=== PATIENT | female | born 1950 | race Caucasian/White ===

== ENCOUNTER 2021-02-05 23:00 | Emergency (ER) | payer MEDICAID, MEDICARE, OTHER ==
[~2021-02-05] VITALS: Ht 165.1 cm; Wt 90.1 kg
[2021-02-05] MEDS ORDERED: IBUPROFEN 600 MG (MOTRIN) TAB PO ONE (23:30)
--- NOTE | 2021-02-06 00:12 | ED Cough/URI ---
General Chief Complaint: Cough/Cold/Flu Symptoms Stated Complaint: BODY ACHES,CHILLS,COUGH Nursing Triage Note: Patient states that she just got off a plane from vacation. Patient went to [place]. Patient states that her grandson tested positive for Covid 01/31/21 and she has had exposure to him. Patient denies having cough, shortness of breath or runny nose. Patient states that she has the chills, body aches and her "skin is sore", especially on the back. Source: patient Exam Limitations: no limitations History of Present Illness Date Seen by Provider: Feb 06, 2021 Time Seen by Provider: 23:05 Initial Comments Patient is a 70-year-old female with history of bronchial asthma who presents with Covid-like symptoms. Symptoms began 5 days ago while on vacation and staying with family member with positive Covid status. Patient reports having cough, mild shortness of breath and stuffy nose. She states that she has chills body ache and her skin feels sore especially between her shoulder blades. She denies chest pain palpitations and shortness of breath at rest but denies wheezing. Reports intermittent daily low-grade fevers. Patient is taking ibuprofen with limited relief. No other acute symptoms or complaints. Timing/Duration: just prior to arrival, changing over time, intermittent Severity/Quality: moderate Prior Episodes/Possible Cause: other Modifying Factors: Improves With Other Associated Symptoms: cough, earache, facial pain, fever/chills, sore throat, other Allergies and Home Medications Allergies Coded Allergies: No Known Drug Allergies (Unverified , 02/05/21) Patient Home Medication List Home Medication List Reviewed: Yes Review of Systems Review of Systems Constitutional: see HPI EENTM: see HPI Respiratory: see HPI Cardiovascular: see HPI Gastrointestinal: see HPI Genitourinary: see HPI Musculoskeletal: no symptoms reported Skin: see HPI Psychiatric/Neurological: See HPI Hematologic/Lymphatic: See HPI Immunological/Allergic: see HPI All Other Systems Reviewed Negative Unless Noted: Yes Past Ruhiafr-Hipbsv-Bnzdrd Hx Patient Social History Tobacco Use?: Yes Substance use?: No Alcohol Use?: No Pt feels they are or have been: No Physical Exam Vital Signs - First Documented Capillary Refill : Less Than 3 Seconds Height: '" Weight: lbs. oz. kg; 33.00 BMI Method: General Appearance: other Eyes: Bilateral Eye Normal Inspection, Bilateral Eye PERRL, Bilateral Eye EOMI HEENT: PERRL/EOMI, other Neck: full range of motion Respiratory: chest non-tender, lungs clear, rhonchi Cardiovascular: regular rate, rhythm Gastrointestinal: non tender, soft Neurologic/Psychiatric: concrete batcher II-XII nml as tested, oriented x 3 Skin: warm/dry Focused Exam Sepsis Stage: Ruled Out Progress/Results/Core Measures Suspected Sepsis SIRS Temperature: Pulse: 91 Respiratory Rate: 18 Blood Pressure 172 /84 Mean: 113 Results/Orders Lab Results Laboratory Tests Test 02/05/21 23:31 Range/Units My Orders Orders - JESIKA HADDAD DO Coronavirus Sars-Cov-2 So 2018 (02/05/21 23:23) Ibuprofen Tablet (Motrin Tablet) (02/05/21 23:30) Influenza A And B Antigens (02/05/21 23:43) Medications Given in ED Current Medications Medications Dose Ordered Sig/Jesu Route Start Time Stop Time Status Last Admin Dose Admin Ibuprofen 600 mg ONCE ONCE PO 02/05/21 23:30 02/05/21 23:31 DC 02/05/21 23:34 600 MG Vital Signs/I&O 02/05/21 02/05/21 23:03 23:03 Temp 37.5 Pulse 91 Resp 18 B/P (MAP) 172/84 (113) Pulse Ox 97 O2 Delivery Room Air Room Air Capillary Refill : Less Than 3 Seconds Blood Pressure Mean: 113 Departure Communication (Admissions) Patient with Covid-like symptoms. Influenza swab negative. Covid testing pending. No respiratory compromise. Ibuprofen given for symptom control. Recomme ndations are for self quarantine, supportive care and PCP follow-up. Return precautions reviewed. Patient verbalizes understanding agreement discharge instructions prior to departure. Impression Primary Impression: COVID-19 Disposition: 01 HOME, SELF-CARE Condition: Stable Departure-Patient Inst. Decision time for Depature: 00:16 Patient Instructions: COVID-19 (DC) Add. Discharge Instructions: Your evaluated in the emergency for Covid-like symptoms. An influenza test was negative and Covid test are pending. Please self isolate until 2 days after symptoms resolved. Take ibuprofen for pain and use albuterol inhaler as needed. Take newly prescribed medications as directed and monitor O2 levels with digital oxygen sensor. Return to the ED if oxygen levels fall below 90% or if other concerning symptoms. All discharge instructions reviewed with patient and/or family. Voiced understanding. Scripts Prednisone (Prednisone) 20 Mg Tab 40 MG PO DAILY, #6 TAB 0 Refills Prov: JESIKA HADDAD DO 02/06/21 Azithromycin (Zithromax) 250 Mg Tablet 250 MG PO UD, #6 TAB TAKE 2 TABLETS TODAY, THEN TAKE 1 TABLET DAILY FOR 4 MORE DAYS Prov: JESIKA HADDAD DO 02/06/21 Albuterol Sulfate (Proventil Hfa) 6.7 Gm Hfa.aer.ad 2 PUFF INH Q6H for SHORTNESS OF BREATH, #1 EACH Prov: JESIKA HADDAD DO 02/06/21 JESIKA HADDAD DO Feb 06, 2021 00:12
[2021-02-06] MEDS ORDERED: AZIT250T PO (00:18)
[2021-02-06] MEDS ORDERED: PRD20T PO (00:18)
[2021-02-06] MEDS ORDERED: RT-ALBUINH INH (00:18)
[2021-02-06 00:23] VITALS: BP 162/91
== END 2021-02-06 00:23 | disposition home or self-care (01) ==
LOC: EDUNIT# 23:00 → ER FS 23:03
DX: U07.1 COVID-19 (principal)
CPT/HCPCS: 87635; 87804

== ENCOUNTER 2021-02-13 21:03 | Inpatient (IN) | payer MEDICARE, MEDICAID ==
[~2021-02-13] VITALS: Ht 165 cm; Wt 90.1 kg
[~2021-02-13 21:03] MED LIST: AZIT250T PO; PRD20T PO; RT-ALBUINH INH
[2021-02-13] MEDS ORDERED: NS IV 1000 ML 1,000 ML IV SCH (21:30)
--- NOTE | 2021-02-13 21:48 | Diagnostic Imaging Report ---
EXAMINATION: Chest radiograph, portable AP view. DATE: 02/13/2021 9:43 PM INDICATION: 70-year-old female, COVID positive. Shortness of breath. COMPARISON: None. FINDINGS: There is multifocal patchy bilateral lung consolidation. Heart size and mediastinal contours are unremarkable. There is no identified pneumothorax. There is no large pleural effusion. There is a chronic appearing deformity of the middle third of the right clavicle. IMPRESSION: 1. Multifocal patchy bilateral lung consolidation which would be most consistent with provided history of COVID 19 infection and multifocal pneumonia/pneumonitis. Dictated by: Dictated on workstation # [id number]
[2021-02-13 21:49] LABS: HEMOGLOBIN 13.2 G/DL (11.5-16.0); MEAN CORPUSCULAR HEMOGLOBIN 30 PG (25-34); WHITE BLOOD COUNT 6.6 10^3/uL (4.3-11.0)
[2021-02-13 21:50] LABS: BASOPHILS % (AUTO) 0 % (0-10); EOSINOPHILS # (AUTO) 0.1 10^3/uL (0.0-0.3); EOSINOPHILS % (AUTO) 1 % (0-10); HEMATOCRIT 39 % (35-52); LYMPHOCYTES % (AUTO) 27 % (12-44); MEAN CORPUSCULAR HGB CONC 34 G/DL (32-36); MEAN CORPUSCULAR VOLUME 88 FL (80-99); MEAN PLATELET VOLUME 9.6 FL (7.4-10.4); MONOCYTES # (AUTO) 0.5 X 10^3 (0.0-1.0); MONOCYTES % (AUTO) 7 % (0-12); NEUTROPHILS # (AUTO) 4.2 X 10^3 (1.8-7.8); NEUTROPHILS % (AUTO) 65 % (42-75); PLATELET COUNT 345 10^3/uL (130-400)
[2021-02-13 21:51] LABS: LYMPHOCYTES # (AUTO) 1.8 X 10^3 (1.0-4.0)
--- NOTE | 2021-02-13 21:56 | ED Dyspnea ---
General Chief Complaint: Respiratory Problems Stated Complaint: COVID+,SOA Source of Information: Patient, Old Records History of Present Illness Date Seen by Provider: Feb 13, 2021 Time Seen by Provider: 21:09 Initial Comments 70 yo female presenting with complaint of worsening cough and shortness of breath. She was diagnosed with Covid last week on February 05 after being seen in the emergency department. She was prescribed an inhaler and steroids. She has been taking Mucinex and NyQuil [id number]. She states that she is coughing up thick sputum but it is gagging her when she coughs and episodes of thick. She has decreased appetite and when she does try to eat or drink something makes her nauseated. She has had no vomiting. She denies any diarrhea. She has had some mild burning with urination today. She has had subjective fever and temp of 99.3 earlier this evening. She has had chills with all this. She has general malaise and fatigue with her symptoms. She denies having a primary care physician and does not follow with any providers. In the remote past she had seen Dr. Wright but again has not seen anyone for a long time. She has been checking her oxygen saturation at home and states it had dipped down to 88% so her family had made her come to the emergency department to be evaluated. Timing/Duration: Other (worsening symptoms for over a week) Severity: Severe Modifying Factors: Worse With Activity; Improves With Albuterol Inhaler (helps her cough up mucus) Associated Symptoms: Anxiety, Cough, Fever, Loss of Appetite, Weakness, Wheezing Allergies and Home Medications Allergies Coded Allergies: No Known Drug Allergies (Unverified , 02/05/21) Home Medications Albuterol Sulfate 6.7 Gm Hfa.aer.ad, 2 PUFF INH Q6H Prescribed by: JESIKA HADDAD on 02/06/2117 Azithromycin 250 Mg Tablet, 250 MG PO UD TAKE 2 TABLETS TODAY, THEN TAKE 1 TABLET DAILY FOR 4 MORE DAYS Prescribed by: JESIKA HADDAD on 02/06/2117 Prednisone 20 Mg Tab, 40 MG PO DAILY Prescribed by: JESIKA HADDAD on 02/06/2117 Patient Home Medication List Home Medication List Reviewed: Yes Review of Systems Review of Systems Constitutional: chills, fever, malaise, weakness EENTM: nose congestion Respiratory: cough, dyspnea on exertion; No hemoptysis; phlegm, short of breath; No stridor; wheezing Cardiovascular: No edema Gastrointestinal: loss of appetite, nausea; No vomiting Genitourinary: dysuria (mild today) Musculoskeletal: other (general body aches) Skin: No rash Psychiatric/Neurological: Anxiety, Headache Physical Exam Vital Signs Vital Signs - First Documented 02/13/21 21:30 Temp 36.7 Pulse 93 Resp 24 B/P (MAP) 142/79 (100) Pulse Ox 92 O2 Delivery Room Air Capillary Refill : Height, Weight, BMI Height: '" Weight: lbs. oz. kg; 33.00 BMI Method: General Appearance: Anxious, Mild Distress, Obese HEENT: PERRL/EOMI, Pharynx Normal Neck: Full Range of Motion, Normal Inspection, Non Tender, Supple Respiratory: No Accessory Muscle Use; No No Respiratory Distress; Decreased Breath Sounds, Rhonci; No Stridor; Wheezing Cardiovascular: Regular Rate, Rhythm, No Murmur, Normal Peripheral Pulses Gastrointestinal: Normal Bowel Sounds, No Pulsatile Mass, Non Tender, Soft Rectal: Deferred Extremity: Normal Capillary Refill, Normal Inspection, Normal Range of Motion Neurologic/Psychiatric: Alert, Oriented x3, presentation specialist II-XII Norm as Tested Skin: Normal Color, Warm/Dry Focused Exam Lactate Level 02/13/21 21:40: Lactic Acid Level 1.32 Lactic Acid Level Laboratory Tests Test 02/13/21 21:40 Lactic Acid Level 1.32 MMOL/L (0.50-2.00) Progress/Results/Core Measures Results/Orders Lab Results Laboratory Tests Test 02/13/21 21:40 02/13/21 21:48 Range/Units White Blood Count 6.6 4.3-11.0 10^3/uL Red Blood Count 4.46 4.35-5.85 10^6/uL Hemoglobin 13.2 11.5-16.0 G/DL Hematocrit 39 35-52 % Mean Corpuscular Volume 88 80-99 FL Mean Corpuscular Hemoglobin 30 25-34 PG Mean Corpuscular Hemoglobin Concent 34 32-36 G/DL Red Cell Distribution Width 13.8 10.0-14.5 % Platelet Count 345 130-400 10^3/uL Mean Platelet Volume 9.6 7.4-10.4 FL Immature Granulocyte % (Auto) 0 % Neutrophils (%) (Auto) 65 42-75 % Lymphocytes (%) (Auto) 27 12-44 % Monocytes (%) (Auto) 7 0-12 % Eosinophils (%) (Auto) 1 0-10 % Basophils (%) (Auto) 0 0-10 % Neutrophils # (Auto) 4.2 1.8-7.8 X 10^3 Lymphocytes # (Auto) 1.8 1.0-4.0 X 10^3 Monocytes # (Auto) 0.5 0.0-1.0 X 10^3 Eosinophils # (Auto) 0.1 0.0-0.3 10^3/uL Basophils # (Auto) 0.0 0.0-0.1 10^3/uL Immature Granulocyte # (Auto) 0.0 0.0-0.1 10^3/uL Prothrombin Time 12.6 12.2-14.7 SEC INR Comment 0.9 0.8-1.4 Activated Partial Thromboplast Time 27 24-35 SEC D-Dimer 1.12 H 0.00-0.49 UG/ML Sodium Level 141 135-145 MMOL/L Potassium Level 4.0 3.6-5.0 MMOL/L Chloride Level 103 98-107 MMOL/L Carbon Dioxide Level 23 21-32 MMOL/L Anion Gap 15 H 5-14 MMOL/L Blood Urea Nitrogen 13 7-18 MG/DL Creatinine 0.70 0.60-1.30 MG/DL Estimat Glomerular Filtration Rate 83 BUN/Creatinine Ratio 19 Glucose Level 118 H 70-105 MG/DL Lactic Acid Level 1.32 0.50-2.00 MMOL/L Calcium Level 8.6 8.5-10.1 MG/DL Corrected Calcium 8.7 8.5-10.1 MG/DL Total Bilirubin 0.6 0.1-1.0 MG/DL Aspartate Amino Transf (AST/SGOT) 42 H 5-34 U/L Alanine Aminotransferase (ALT/SGPT) 26 0-55 U/L Alkaline Phosphatase 107 40-136 U/L Troponin I < 0.30 <0.30 NG/ML C-Reactive Protein 11.10 H <0.50 MG/DL Total Protein 7.2 6.4-8.2 GM/DL Albumin 3.9 3.2-4.5 GM/DL Blood Gas Puncture Site RT RADIAL Blood Gas Patient Temperature 36.7 Arterial Blood pH 7.48 H 7.37-7.43 Arterial Blood Partial Pressure CO2 34 L 35-45 MMHG Arterial Blood Partial Pressure O2 60 L 79-93 MMHG Arterial Blood HCO3 25 23-27 MMOL/L Arterial Blood Total CO2 26.3 21.0-31.0 MMOL/L Arterial Blood Oxygen Saturation 92 L 94-100 % Arterial Blood Base Excess 2.1 -2.5-2.5 MMOL/L Kyle Test OK Blood Gas Ventilator Setting NO Blood Gas Inspired Oxygen ROOM AIR My Orders Orders - RUSTAM TOLENTINO MD Monitor-Rhythm Ecg Trace Only (02/13/21 21:17) Ed Iv/Invasive Line Start (02/13/21 21:17) Cbc With Automated Diff (02/13/21 21:17) Comprehensive Metabolic Panel (02/13/21 21:17) Crp Fs (02/13/21 21:17) Troponin I Fs (02/13/21 21:17) Protime With Inr (02/13/21 21:17) Partial Thromboplastin Time (02/13/21 21:17) Ekg Tracing (02/13/21 21:17) Arterial Blood Gas (02/13/21 21:17) Ns Iv 1000 Ml (Sodium Chloride 0.9%) (02/13/21 21:30) Blood Culture (02/13/21 21:17) Chest 1 View Ap/Pa Only (02/13/21 21:17) Lactic Acid Analyzer (02/13/21 21:17) Dexamethasone Injection (Decadron Inje (02/13/21 21:59) Rx-Albuterol Inhaler (Rx-Ventolin Hfa) (02/13/21 21:59) Nursing Communication (Order) (02/13/21 21:59) Fibrin Degradation Products (02/13/21 22:15) Ct Angio Chest W (02/13/21 22:52) Iohexol Injection (Omnipaque 350 Mg/Ml 1 (02/13/21 23:15) Received Contrast (Hold Metformin- Contr (02/13/21 23:15) Ns (Ivpb) (Sodium Chloride 0.9% Ivpb Bag (02/13/21 23:15) Medications Given in ED Current Medications Medications Dose Ordered Sig/Jesu Route Start Time Stop Time Status Last Admin Dose Admin Iohexol 125 ml ONCE ONCE IV 02/13/21 23:15 02/13/21 23:16 DC 02/13/21 23:26 125 ML Sodium Chloride 100 ml ONCE ONCE IV 02/13/21 23:15 02/13/21 23:16 DC 02/13/21 23:26 100 ML Vital Signs/I&O 02/13/21 02/13/21 02/13/21 02/14/21 21:30 22:00 23:00 00:00 Temp 36.7 Pulse 93 91 90 88 Resp 24 B/P (MAP) 142/79 (100) 146/73 (97) 154/86 (108) 169/81 (110) Pulse Ox 92 93 94 92 O2 Delivery Room Air Room Air Room Air Room Air 02/14/21 00:44 Temp 36.7 Pulse 88 Resp 24 B/P (MAP) 169/81 (110) Pulse Ox 92 O2 Delivery Room Air 02/14/21 00:00 Intake Total 1000 ml Balance 1000 ml Progress Progress Note #1: Progress Note Check basic labs as well as chest x-ray and electrocardiogram. Give IV fluids for hydration, dexamethasone for cough and congestion. ABG to evaluate her oxygenation in finer detail. Progress Note #2: Progress Note Labs did not show any acute significant normality on CBC. Her chemistry has an elevated CRP consistent with Covid infection but troponin and lactic acid are normal. Her ABG did show alkalosis at 7.47 with PCO2 of 32, PO2 of 60 on room air. This is equivalent to 92% O2 sat. She was breathing at least 26 times a minute to maintain the saturation. Chest x-ray shows diffuse infiltrates consistent with Covid. Her D-dimer was slightly evaluated at 1.1. She was breathing a little bit easier after breathing treatment with albuterol inhaler and a spacer. Obtain a CT angiogram to evaluate for PE. Progress Note #3: Time: 23:56 Progress Note Discussed with Dr. Dominique for the hospitalist service and she accepted the patient for admission for Covid and her relative hypoxia and tachypnea. The CT angiogram came back shortly after speaking with Dr. Hernandez did not demonstrate any pulmonary embolism. She did have diffuse infiltrates consistent with Covid. Initial ECG Impression Date: Feb 13, 2021 Initial ECG Impression Time: 21:48 Initial ECG Rate: 88 Initial ECG Rhythm: Normal Sinus Initial ECG Comparisson: No Previous ECG Available Comment Normal sinus rhythm without ST elevation and heart rate of 88 bpm. CA interval 143 ms. QT interval 387 ms with a QTc interval 471 ms. There is no prior tracing available for comparison. Diagnostic Imaging Diagonstic Imaging: Xray Plain Films/CT/US/NM/MRI: chest Comments NAME: [facility]ES [facility] REC#: [id number] PT STATUS: REG ER : 1950 PHYSICIAN: RUSTAM TOLENTINO MD ADMIT DATE: 02/13/21/ER FS Draft Date of Exam:02/13/21 CHEST 1 VIEW AP/PA ONLY EXAMINATION: Chest radiograph, portable AP view. DATE: 02/13/2021 9:43 PM INDICATION: 70-year-old female, COVID positive. Shortness of breath. COMPARISON: None. FINDINGS: There is multifocal patchy bilateral lung consolidation. Heart size and mediastinal contours are unremarkable. There is no identified pneumothorax. There is no large pleural effusion. There is a chronic appearing deformity of the middle third of the right clavicle. IMPRESSION: 1. Multifocal patchy bilateral lung consolidation which would be most consistent with provided history of COVID 19 infection and multifocal pneumonia/pneumonitis. Dictated on workstation # [id number] Dict: 02/13/212144 Trans: 02/13/212147 [facility] [id number] Interpreted by: SAMY NICHOLS MD Electronically signed by: Reviewed: Reviewed by [place] Diagonstic Imaging: CT Plain Films/CT/US/NM/MRI: chest Comments CT angio report from [facility] read as no PE. Diffuse infiltrates consistent with covid infection. Reviewed: Reviewed [facility] Study Departure Communication (Admissions) Time/Spoke to Admitting Phy: 23:56 d/w for Hospitalist service and she accepted pt for admit with borderline O2 and increased respiratory rate to maintain sats. Use Covid order set. Impression Primary Impression: Pneumonia due to COVID-19 virus Disposition: 30 STILL A PATIENT Condition: Stable Admissions Decision to Admit Reason: Admit from ER (General) Decision to Admit/Date: Feb 13, 2021 Time/Decision to Admit Time: 23:56 Departure-Patient Inst. Referrals: NO,LOCAL PHYSICIAN (PCP/Family) Primary Care Physician RUSTAM TOLENTINO MD Feb 13, 2021 21:56
[2021-02-13] MEDS ORDERED: RX-ALBUTEROL INHALER (VENTOLIN HFA) 8.5 GM IH STA (21:59)
[2021-02-13 22:00] LABS: ABG BASE EXCESS 2.1 MMOL/L (-2.5-2.5); ABG OXYGEN SATURATION 92 % (94-100); ABG PCO2 34 MMHG (35-45); ABG PH 7.48 (7.37-7.43); ABG PO2 60 MMHG (79-93); ABG TCO2 26.3 MMOL/L (21.0-31.0)
[2021-02-13 22:01] LABS: PATIENT TEMP 36.7; VENTILATOR NO
[2021-02-13 22:02] LABS: ALLENS TEST OK; INSPIRED O2 ROOM AIR
[2021-02-13 22:03] LABS: INR 0.9 (0.8-1.4); PROTHROMBIN TIME PATIENT 12.6 SEC (12.2-14.7)
[2021-02-13 22:15] LABS: BUN/CREATININE RATIO 19; CALCIUM 8.6 MG/DL (8.5-10.1); CARBON DIOXIDE 23 MMOL/L (21-32); CHLORIDE 103 MMOL/L (98-107); GFR ESTIMATED 83; GLUCOSE 118 MG/DL (70-105); SODIUM 141 MMOL/L (135-145)
[2021-02-13 22:16] LABS: ALANINE AMINOTRANSFERASE 26 U/L (0-55); ALBUMIN 3.9 GM/DL (3.2-4.5); ALKALINE PHOSPHATASE 107 U/L (40-136); BILIRUBIN,TOTAL 0.6 MG/DL (0.1-1.0); TOTAL PROTEIN 7.2 GM/DL (6.4-8.2)
[2021-02-13] MEDS ORDERED: NS 100 ML (IVPB) BAG IV ONE (23:15)
[2021-02-13] MEDS ORDERED: HOLD METFORMIN - RECEIVED CONTRAST 20 ML VIAL IV SCH (23:15)
[2021-02-13] MEDS ORDERED: IOHEXOL 350 MG/ML 150 ML (OMNIPAQUE 350) VIAL IV ONE (23:15)
[2021-02-14 01:45] VITALS: BP 175/98
[2021-02-14] MEDS ORDERED: LACTATED RINGERS 1,000 ML IV SCH (01:45)
[2021-02-14 02:13] VITALS: BP 142/79
[2021-02-14] MEDS ORDERED: RT-ALBUTEROL HFA 8.5 GM INHALER IH PRN (02:30)
[2021-02-14 04:11] VITALS: BP 136/83
[2021-02-14 05:45] LABS: BASOPHILS % (AUTO) 0 % (0-10); EOSINOPHILS % (AUTO) 0 % (0-10); HEMATOCRIT 38 % (35-52); HEMOGLOBIN 12.5 g/dL (11.5-16.0); LYMPHOCYTES % (AUTO) 20 % (12-44); MEAN CORPUSCULAR HEMOGLOBIN 29 pg (25-34); MEAN CORPUSCULAR HGB CONC 33 g/dL (32-36); MEAN CORPUSCULAR VOLUME 88 fL (80-99); MEAN PLATELET VOLUME 9.5 fL (9.0-12.2); MONOCYTES # (AUTO) 0.1 10^3/uL (0.0-1.0); MONOCYTES % (AUTO) 2 % (0-12); NEUTROPHILS # (AUTO) 3.8 10^3/uL (1.8-7.8); NEUTROPHILS % (AUTO) 78 % (42-75); PLATELET COUNT 316 10^3/uL (130-400); WHITE BLOOD COUNT 4.9 10^3/uL (4.3-11.0)
[2021-02-14 05:56] LABS: ALBUMIN 3.6 GM/DL (3.2-4.5)
[2021-02-14 05:57] LABS: POTASSIUM 4.1 MMOL/L (3.6-5.0)
[2021-02-14 05:58] LABS: CALCIUM 8.4 MG/DL (8.5-10.1)
[2021-02-14 05:59] LABS: TOTAL PROTEIN 6.6 GM/DL (6.4-8.2)
[2021-02-14 06:01] LABS: BILIRUBIN,TOTAL 0.5 MG/DL (0.1-1.0); LYMPHOCYTES % (MANUAL) 8 %; MONOCYTES % (MANUAL) 9 %; NEUTROPHILS % (MANUAL) 83 %; RBC MORPH NORMAL
[2021-02-14 06:03] LABS: CREATININE SERUM 0.74 MG/DL (0.60-1.30)
--- NOTE | 2021-02-14 07:00 | Diagnostic Imaging Report ---
PROCEDURE: CT angiography of the chest with contrast. TECHNIQUE: Multiple contiguous axial images were obtained through the chest after uneventful bolus administration of intravenous contrast. 3D reconstructed CTA MIP acquisitions were also performed. Auto Exposure Controls were utilized during the CT exam to meet ALARA standards for radiation dose reduction. INDICATION: Chest pain, shortness of breath. FINDINGS: There are patchy bilateral ground glass pulmonary opacities suspect for atypical pneumonia likely COVID. There are no filling defects seen within the pulmonary arteries to suggest pulmonary embolism. There is no pleural or pericardial fluid. There is no pneumothorax. Heart size is normal. There is no evidence of dissection. There are a few reactive lymph nodes in the mediastinum. Visualized intra-abdominal structures are unremarkable. IMPRESSION: No evidence of pulmonary embolism or aortic dissection. Patchy bilateral groundglass infiltrates suspect for COVID pneumonia. Report was faxed to [facility] by cheri at 6:58AM. Dictated by: Dictated on workstation # [id number]
[2021-02-14 07:41] VITALS: BP 131/72
[2021-02-14] MEDS: RT-ALBUTEROL HFA 8.5 GM INHALER IH SCH ×2 (08:50→15:39)
[2021-02-14] MEDS ORDERED: ACET-2267 PO (10:08)
[2021-02-14] MEDS ORDERED: GUAI600T43 PO (10:08)
[2021-02-14] MEDS ORDERED: RT-ALBUINH INH (10:08)
[2021-02-14] MEDS ORDERED: BENZ100C18 PO (11:26)
--- NOTE | 2021-02-14 11:35 | Discharge Inst-Simple/Standard ---
Discharge Inst-Standard Discharge Medications New, Converted or Re-Newed RX: Transmitted to Pharmacy Patient Instructions/Follow Up Plan of Care/Instructions/FU: Please continue to take your medications as written. [facility] stay and to establish care for ny other medical issues or preventative care needs. Please get vaccinated against COVID-19 as soon as you are out of isolation. Activity as Tolerated: Yes Discharge Diet: No Restrictions Return to The Hospital For: Chest pain, shortness of breath, weakness, confusion, fever, if you feel you are getting worse. ALLA LOWRY MD Feb 14, 2021 11:34
--- NOTE | 2021-02-14 11:41 | Short Stay Summary-Hospitalist ---
History of Present Illness HPI/Chief Complaint Pt is a 70yoCF with no known past medical history who presented to the ER due to shortness of breath. She states she tested positive for COVID on 02/05 and was symptomatic a week before that. She is unvaccinated against COVID. She had a productive cough prompting her to seek evaluation. She was somewhat weak as well with nausea. She was mildly hypoxic with sats in the 90s. She was admitted for further care. This morning she states she is feeling much better and would like to go home. She has been up and walking without difficulty. Source: patient Date Seen 02/14/21 Time Seen by a Provider: 11:36 Attending Physician Alla Dominique MD PCP No,Local Physician Referring Physician Date of Admission Feb 14, 2021 at 01:30 Home Medications & Allergies Home Medications Reviewed patient Home Medication Reconciliation performed by pharmacy medication reconciliations museum exhibit technician and/or nursing. Patients Allergies have been reviewed. Allergies Allergies Coded Allergies No Known Drug Allergies (Unverified02/05/21) Past Ekftcti-Afufnf-Knilhm Hx Patient Social History Marrital Status: Tobacco Use?: No Smoking Status: Former Smoker (quit a few years ago) Smokeless Tobacco Frequency: Never a User Use of E-Cig and/or Vaping dev: No Substance use?: No Alcohol Use?: Yes Alcohol Frequency: Once in a while Pt feels they are or have been: No Immunizations Up To Date Tetanus Booster (TDap): Less Than 5 Years Hepatitis A: Yes Hepatitis B: Yes Current Status status: No status: No Advance Directives: No Communicates: Verbally Primary Language: Portuguese Preferred Spoken Language: Portuguese Is interpretation needed?: No Sensory deficits: Vision impairment Implanted or Applied Medical D: None Past Medical History Hypertension Family Medical History Reviewed Nursing Family Hx No Pertinent Family Hx Review of Systems Constitutional: No chills, No fever; malaise EENTM: no symptoms reported Respiratory: cough, phlegm Cardiovascular: No chest pain, No edema, No palpitations Gastrointestinal: No abdominal pain, No constipation, No diarrhea; nausea; No vomiting Genitourinary: no symptoms reported Musculoskeletal: no symptoms reported Skin: no symptoms reported Psychiatric/Neurological: No Symptoms Reported Physical Exam Physical Exam Vital Signs Vital Signs - First Documented 02/13/21 02/14/21 21:30 02:13 Temp 36.7 Pulse 93 Resp 24 B/P (MAP) 142/79 (100) Pulse Ox 92 O2 Delivery Room Air FiO2 21 Capillary Refill : Height, Weight, BMI Height: '" Weight: lbs. oz. kg; 33.09 BMI Method: General Appearance: No Apparent Distress, WD/WN, Obese HEENT: PERRL/EOMI, Moist Mucous Membranes; No Scleral Icterus (L), No Scleral Icterus (R) Neck: Normal Inspection, Supple Respiratory: No Accessory Muscle Use, No Respiratory Distress, Decreased Breath Sounds (in bases); No Rhonci, No Wheezing Cardiovascular: Regular Rate, Rhythm, No Murmur, Normal Peripheral Pulses Gastrointestinal: Normal Bowel Sounds, No Pulsatile Mass, Non Tender, Soft Rectal: Deferred Extremity: Normal Capillary Refill, No Calf Tenderness Neurologic/Psychiatric: Alert, Oriented x3, Normal Mood/Affect Skin: Normal Color, Warm/Dry Results Results/Procedures Labs Laboratory Tests 02/13/21 21:40 02/14/21 05:25 Patient resulted labs reviewed. Imaging: Reviewed Imaging Report Imaging [facility], [place] NAME: KWAME SANCHES [facility] REC#: [id number] PT STATUS: REG ER : 1950 PHYSICIAN: RUSTAM TOLENTINO MD ADMIT DATE: 02/13/21/ER FS Signed Date of Exam:02/13/21 CHEST 1 VIEW AP/PA ONLY EXAMINATION: Chest radiograph, portable AP view. DATE: 02/13/2021 9:43 PM INDICATION: 70-year-old female, COVID positive. Shortness of breath. COMPARISON: None. FINDINGS: There is multifocal patchy bilateral lung consolidation. Heart size and mediastinal contours are unremarkable. There is no identified pneumothorax. There is no large pleural effusion. There is a chronic appearing deformity of the middle third of the right clavicle. IMPRESSION: 1. Multifocal patchy bilateral lung consolidation which would be most consistent with provided history of COVID 19 infection and multifocal pneumonia/pneumonitis. Dictated by: Dictated on workstation # [id number] Dict: 02/13/212144 Trans: 02/13/212156 [facility] [id number] Interpreted by: SAMY NICHOLS MD Electronically signed by: SAMY NICHOLS MD 02/13/21 2157 [facility], [place] NAME: KWAME SANCHES [facility] REC#: [id number] PT STATUS: ADM IN : 1950 PHYSICIAN: RUSTAM TOLENTINO MD ADMIT DATE: 02/14/21/ Signed Date of Exam:02/13/21 CT ANGIO CHEST W PROCEDURE: CT angiography of the chest with contrast. TECHNIQUE: Multiple contiguous axial images were obtained through the chest after uneventful bolus administration of intravenous contrast. 3D reconstructed CTA MIP acquisitions were also performed. Auto Exposure Controls were utilized during the CT exam to meet ALARA standards for radiation dose reduction. INDICATION: Chest pain, shortness of breath. FINDINGS: There are patchy bilateral ground glass pulmonary opacities suspect for atypical pneumonia likely COVID. There are no filling defects seen within the pulmonary arteries to suggest pulmonary embolism. There is no pleural or pericardial fluid. There is no pneumothorax. Heart size is normal. There is no evidence of dissection. There are a few reactive lymph nodes in the mediastinum. Visualized intra-abdominal structures are unremarkable. IMPRESSION: No evidence of pulmonary embolism or aortic dissection. Patchy bilateral groundglass infiltrates suspect for COVID pneumonia. Report was faxed to [facility]RN Infection Control by lynn at 6:58AM. Dictated by: Dictated on workstation # [id number] Dict: 02/14/21 0644 Trans: 02/14/21 0817 [facility] [id number] Interpreted by: SHERRON DIANE MD Electronically signed by: SHERRON DIANE MD 02/14/21 0817 Short Stay Diagnosis Discharge Diagnosis-Short Stay Admission Diagnosis COVID19 Final Discharge Diagnosis COVID19 Conclusion Plan COVID19 Pt doing very well today, SOB improving Nausea improved Will get home oxygen study ALLA DOMINIQUE MD Feb 14, 2021 11:41
[2021-02-14 12:05] VITALS: BP 153/90
[2021-02-14 15:55] VITALS: BP 170/98
--- OUTSIDE RECORDS SUMMARY | 2021-02-18 13:21 | XMS REPORT | Clinical Summary ---
Author Author [facility] Organization [facility] Address Unknown Phone Unavailable Care Team Providers Care Crew Director Name Role Phone Elliot Zamudio MD PCP Allergies Not on File Medications Not on file Active Problems Not on file Social History Date Tobacco Use Types Packs/Day Years Used Never Assessed Sex Assigned at Date Recorded Not on file Last Filed Vital Signs Not on file Plan of Treatment Not on file Results Not on filefrom Last 3 Months Insurance Type Payer Benefit Subscriber ID Effective Phone Address Plan / Dates Group OTHER GOVERNMENT [id number] 2015-P [employer] LIFE resent [id number] Negra Hirsch Personal/F Self 1950 [address] (Home) [place] [address]
== END 2021-02-14 18:45 | disposition home or self-care (01) | DRG 177 ==
LOC: EDUNIT# 21:03 → ER FS 21:05 → 4TH 02-14 01:30
PROVIDERS: ADMIT Family Medicine; ATTEND Family Medicine
DX: U07.1 COVID-19 (principal); J12.82 Pneumonia due to coronavirus disease 2019; H54.7 Unspecified visual loss; Z73.0 Burn-out; Z87.891 Personal history of nicotine dependence
CPT/HCPCS: 36415; 71045; 71275; 80053; 82805; 83605; 84484; 85007; 85025; 85027; 85379; 85610; 85730; 86141; 87040; 93005; 94760; 94761

== ENCOUNTER → 2023-03-03 | Outpatient (CLI) | payer MEDICARE, OTHER ==
[~2023-03-03] MED LIST changes: +ACET-2267 PO; +BENZ100C18 PO; +GUAI600T43 PO
[2023-03-03 16:37] LABS: ABSOLUTE RETIC # 52 10e9/uL (24-90); BASOPHILS # (AUTO) 0.1 10^3/uL (0.0-0.1); BASOPHILS % (AUTO) 1 % (0-10); EOSINOPHILS # (AUTO) 0.4 10^3/uL (0.0-0.3); EOSINOPHILS % (AUTO) 4 % (0-10); HEMATOCRIT 38 % (35-52); HEMOGLOBIN 12.2 g/dL (11.5-16.0); LYMPHOCYTES # (AUTO) 6.8 10^3/uL (1.0-4.0); LYMPHOCYTES % (AUTO) 57 % (12-44); MEAN CORPUSCULAR HEMOGLOBIN 29 pg (25-34); MEAN CORPUSCULAR HGB CONC 32 g/dL (32-36); MEAN CORPUSCULAR VOLUME 92 fL (80-99); MEAN PLATELET VOLUME 10.2 fL (9.0-12.2); MONOCYTES # (AUTO) 0.7 10^3/uL (0.0-1.0); MONOCYTES % (AUTO) 6 % (0-12); NEUTROPHILS # (AUTO) 3.9 10^3/uL (1.8-7.8); NEUTROPHILS % (AUTO) 33 % (42-75); PLATELET COUNT 290 10^3/uL (130-400); RETICULOCYTE % 1.24 % (0.50-2.40); WHITE BLOOD COUNT 11.9 10^3/uL (4.3-11.0)
[2023-03-03 17:22] LABS: EOSINOPHILS % (MANUAL) 3 %; LYMPHOCYTES % (MANUAL) 50 %; MONOCYTES % (MANUAL) 9 %; NEUTROPHILS % (MANUAL) 36 %; PLATELET CLUMPS NONE SEEN; PLATELET ESTIMATE ADEQUATE; POIKILOCYTOSIS SLIGHT; REACTIVE LYMPHOCYTES 2 %
== END ==
LOC: LABNPT 13:57
PROVIDERS: ATTEND Registered Nurse Emergency
DX: D72.829 Elevated white blood cell count, unspecified (principal)
CPT/HCPCS: 85007; 85027; 85045; 85055

== ENCOUNTER → 2023-03-18 | Outpatient (CLI) | payer MEDICARE, OTHER ==
--- NOTE | 2023-03-18 13:24 | Diagnostic Imaging Report ---
CT CHEST WO TECHNIQUE: Multiple contiguous axial images were obtained through the chest without the use of intravenous contrast. All CT scans use one or more of the following dose optimizing techniques: automated exposure control, MA and/or KvP adjustment based on a patient size and exam type, or iterative reconstruction. INDICATION: Right lower lobe nodule seen on outside imaging. Recent diagnosis of chronic lymphocytic leukemia. COMPARISON: CTA chest of 02/05/2021. FINDINGS: Lungs and airway: No abnormality in the trachea. There is a 2.9 x 2.1 cm spiculated soft tissue nodule in the superior segment of the right lower lobe that is new since prior examination of 2020. There are multifocal micronodules involving all five lobes that are best seen on MIP reformats. Pleura: No pleural effusion or pneumothorax. Heart and mediastinum: There are enlarged bilateral axillary lymph nodes. A target lymph node on the left measures 1.9 x 1.6 cm (image 43, series 2). Mildly enlarged mediastinal lymph nodes include a reference right lower paratracheal lymph node measuring 1.8 x 1.4 cm. Heart is normal in size. Borderline enlarged right anterior juxtaphrenic lymph node. No pericardial effusion. Heart is normal in size. Normal-caliber thoracic aorta. Mild coronary artery calcifications. Upper abdomen: There are a few mildly enlarged gabriel hepatis lymph nodes. Diffuse low attenuation of the liver is most indicative of steatosis. Musculoskeletal: No lytic or blastic skeletal lesions. IMPRESSION: 1. Right lower lobe solid pulmonary nodule is new since prior CT of 2020. This may represent extranodal lymphoma with recent diagnosis of CLL. Primary lung cancer is also a possibility. Infection or inflammation should remain diagnoses of exclusion. 2. Enlarged axillary, mediastinal and upper abdominal lymph nodes would be compatible with patient's reported CLL. Dictated by: Dictated on workstation # [id number]
== END ==
LOC: RAD 10:45
PROVIDERS: ATTEND Registered Nurse Emergency
DX: R91.1 Solitary pulmonary nodule (principal); R59.1 Generalized enlarged lymph nodes; I10 Essential (primary) hypertension; J44.9 Chronic obstructive pulmonary disease, unspecified; R91.8 Other nonspecific abnormal finding of lung field; E78.5 Hyperlipidemia, unspecified; Z87.442 Personal history of urinary calculi
CPT/HCPCS: 71250

== ENCOUNTER → 2023-05-28 | Outpatient (CLI) | payer MEDICARE, OTHER ==
--- NOTE | 2023-05-28 12:11 | Diagnostic Imaging Report ---
HISTORY: Cough, wheezing, shortness of air. COMPARISON: 02/13/2021. TECHNIQUE: Two views of the chest. FINDINGS: Lung volumes are normal. No consolidation is seen. There is no pleural effusion or pneumothorax. The cardiac silhouette is normal in size. IMPRESSION: 1. No acute pulmonary abnormality. 2. The pulmonary nodule seen on the prior CT is not visible radiographically. Dictated by: Dictated on workstation # [id number]
== END ==
LOC: RAD FS 11:45
PROVIDERS: ATTEND Registered Nurse Emergency
DX: R06.02 Shortness of breath (principal)
CPT/HCPCS: 71046